=== PATIENT | female | born 2000 | race American Indian/Alaskan Native ===

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

== ENCOUNTER 2021-08-05 13:13 | Outpatient (CLI) | payer OTHER ==
[2021-08-05 13:32] VITALS: BP 133/78
--- NOTE | 2021-08-05 18:13 | Ultrasound Report ---
ULTRASOUND BIOPHYSICAL PROFILE ULTRASOUND OB LIMITED INDICATION: well being TECHNIQUE: Transabdominal ultrasound imaging. COMPARISON: None FINDINGS: breathing movement = 2 Gross body movement = 2 tone = 2 Qualitative amniotic fluid volume = 2 Total biophysical score = 8/8 Amniotic fluid index is 14.0 cm. Presentation is cephalic. heart rate is 138 beats per minute. IMPRESSION: biophysical profile equals 8/8. Signer Name: Jeff Mckee Jr, MD Signed: 08/05/2021 6:09 PM Workstation Name: [id number]
== END 2021-08-05 14:52 | disposition home or self-care (01) ==
LOC: TRG 13:13 → APU 13:15 → TRG 14:52
PROVIDERS: ATTEND Obstetrics & Gynecology
DX: Z34.93 Encounter for supervision of normal pregnancy, unspecified, third trimester (principal); Z3A.40 40 weeks gestation of pregnancy
CPT/HCPCS: 59025; 76815; 76819

== ENCOUNTER 2021-08-08 09:01 | Inpatient (IN) | payer OTHER ==
--- NOTE | 2021-08-08 10:37 | History and Physical Report ---
History of Present Illness Date of examination: 08/08/21 Date of admission: 08/08/21 09:01 Chief complaint: Here for scheduled induction of labor. History of present illness: 21 year old female here for scheduled induction of labor due to at 41 2/7 weeks gestation. Patient received care at [facility] office and records are available. LMP 10/23/20. EDC 07/30/21. significant for the following: obesity, anemia, size greater than dates, Vitamin D deficiency. labs are as follows: O+, antibody screen negative, rubella immune, varicella immune, pap smear negative, HIV negative, hepatitis B surface antigen negative, RPR nonreactive, gonorrhea negative, chlamydia negative, trichomonas negative, GBS negative, 1 hour sugar test 134. Past History Past Medical History: other (obesity) Past Surgical History: appendectomy [facility] History: denies: chlamydia, gonorrhea, hepatitis B, herpes, HIV, syphilis, trichomonas Family/Genetic History: none Social history: lives with family, full code. denies: smoking, alcohol abuse, prescription drug abuse, IV drug use - Obstetrical History Expected Date of Delivery: 07/30/21 Actual Gestation: 41 Week(s) 2 Day(s) : 1 Para: 0 Hx # Term Pregnancies: 0 Number of Pregnancies: 0 Spontaneous Abortions: 0 Induced : 0 Number of Living Children: 0 Medications and Allergies Allergies Allergy/AdvReac Type Severity Reaction Status Date / Time No Known Allergies Allergy Verified 11/02/17 11:38 Home Medications Medication Instructions Recorded Confirmed Last Taken Type Ferric Sulfate 1 tab PO DAILY 08/08/21 08/08/21 08/07/21 17:00 History Pnv,Calcium 72/Iron/Folic Acid 1 each PO DAILY 08/08/21 08/08/21 08/07/21 21:00 History [ Plus Tablet] Review of Systems All systems: negative (irregular mild contractions) - Vital Signs Vital signs: Vital Signs Pulse BP 111 H 120/60 08/08/21 09:38 08/08/21 09:38 Temp Pulse Resp BP Pulse Ox 98.6 F 111 H 20 120/60 97 08/08/21 10:08 08/08/21 10:31 08/08/21 10:08 08/08/21 09:38 08/08/21 10:31 - Physical Exam Abdomen: Positive: normal appearance, soft. Negative: distention, tenderness, guarding, rigidity Genitourinary (Female): Positive: normal external genitalia, normal perenium. Negative: perineal/vulvar lesions (no lesions seen on careful exam with bright light upon admission) Vagina: Positive: normal moisture Uterus: Positive: enlarged. Negative: tender Anus/Rectum: Positive: normal perianal skin Extremities: Positive: normal. Negative: tenderness - Obstetrical FHR: category 1 Uterine Contraction Monitor Mode: External Cervical Dilatation: 1 Cervical Effacement Percentage: 40 station: -4 Uterine Contraction Pattern: Irregular Uterine Contraction Intensity: Mild Results All other labs normal. Assessment and Plan A: at 41 weeks, 2 days gestation. GBS negative. Obesity. P: Admit. Continuous EFM. US to confirm presentation. Cervidil for cervical ripening, followed by Pitocin induction of labor.
[2021-08-08 10:51] LABS: Hemoglobin 12.1 gm/dl (10.1-14.3); Mean Corpuscular HGB Conc 33 % (30-34); Mean Corpuscular Volume 90 fl (79-97); Platelet Count 311 K/mm3 (140-440); Red Blood Count 4.13 M/mm3 (3.65-5.03); Red Cell Distribution Width 14.1 % (13.2-15.2)
[2021-08-08] MEDS ORDERED: OXYTOCIN DRIP 30 UNITS/500 ML BAG IV SCH ×3 (11:00→15:00)
[2021-08-08] MEDS: LACTATED RINGERS 1,000 ML IV SCH ×2 (11:10→15:24)
[2021-08-08] MEDS ORDERED: LIDOCAINE (2%) 20 MG/1 ML VIAL 20 ML MDV INFILTRATI SCH (12:00)
[2021-08-08] MEDS ORDERED: DINOPROSTONE 10 MG VAG SUPP VG SCH (12:00)
[2021-08-08] MEDS ORDERED: ONDANSETRON 4 MG/2 ML INJ IV PRN ×3 (12:00→17:33)
[2021-08-08] MEDS ORDERED: BUTORPHANOL 2 MG/1 ML INJ IV PRN (12:00)
[2021-08-08] MEDS ORDERED: ePHEDrine SULFATE 50 MG/1 ML INJ IV PRN (12:00)
[2021-08-08] MEDS ORDERED: TERBUTALINE 1 MG/1 ML INJ SUB-Q PRN (12:00)
[2021-08-08] MEDS ORDERED: CARBOPROST TROMETHAMINE 250 MCG/1 ML INJ IM PRN (12:00)
[2021-08-08] MEDS ORDERED: fentaNYL 100 MCG/2 ML INJ IV PRN (12:00)
[2021-08-08] MEDS ORDERED: OXYTOCIN 10 UNIT/1 ML INJ IM PRN (12:00)
[2021-08-08] MEDS ORDERED: METHYLERGONOVINE MALEATE 0.2 MG/ML VIAL IM PRN (12:00)
[2021-08-08] MEDS ORDERED: miSOPROStol 200 MCG TAB PR PRN ×2 (12:00→18:24)
[2021-08-08] MEDS ORDERED: MINERAL OIL 30 ML ORAL LIQD PO PRN (12:00)
[2021-08-08] MEDS ORDERED: ACETAMINOPHEN 325 MG TAB PO PRN (12:00)
[2021-08-08] MEDS ORDERED: LOPERAMIDE 2 MG CAP PO PRN (12:00)
--- NOTE | 2021-08-08 13:00 | Event Note ---
Date: 08/08/21 US shows cephalic presentation, EFW [address] Alegria re: EFW. Dr. Alegria states to offer patient a section due to suspected macrosomia. Discussed with patient in detail risks of macrosomia, including increased risks of prolonged labor, operative delivery, hemorrhage, lacerations of vulva and vagina, and shoulder dystocia. Discussed option of section due to suspected macrosomia versus induction of labor/attempting vaginal . Patient states she wants to have a section. US being done for BPP per Dr. Alegria's order. SVE 1.5/70/- 4. Irregular contractions. Informed patient to avoid eating and drinking. MD, anesthesia, and nurse notified of plan for section at 4:00 PM today.
[2021-08-08] MEDS ORDERED: BICITRA ORAL LIQD 30ML PO NR (14:25)
[2021-08-08] MEDS ORDERED: METOCLOPRAMIDE 10 MG/2 ML INJ IV NR (14:25)
[2021-08-08] MEDS ORDERED: FAMOTIDINE 20 MG/2 ML INJ IV NR (14:25)
[2021-08-08] MEDS ORDERED: LACTATED RINGERS 1,000 ML IV SCH (14:30)
[2021-08-08] MEDS ORDERED: PROMETHAZINE 25 MG TAB PO PRN (15:00)
[2021-08-08] MEDS ORDERED: NalbUPHINE 10 MG/1 ML INJ IV PRN (15:00)
[2021-08-08] MEDS ORDERED: PROMETHAZINE 25 MG RECT SUPP PR PRN ×2 (15:00→17:33)
[2021-08-08] MEDS ORDERED: NALOXONE 0.4 MG/1 ML INJ IV PRN ×2 (15:00→17:33)
[2021-08-08] MEDS ORDERED: diphenhydrAMINE 50 MG/ML VIAL IV PRN (15:00)
[2021-08-08] MEDS ORDERED: HYDROmorphone 1 MG/1 ML INJ IV PRN (15:00)
[2021-08-08] MEDS ORDERED: ceFAZolin/Water 2 GM/20 ML 2 GM/20 ML SYRINGE IV NR (15:00)
--- NOTE | 2021-08-08 15:49 | Event Note ---
Date: 08/08/21 Macrosomia Postdates NPO, to OR for elective delivery Informed consent obtained David Alegria MD
--- NOTE | 2021-08-08 16:10 | Procedure Note ---
OB Delivery Note - Delivery Date of Delivery: 08/08/21 Surgeon: PATRICA ERAZO - Section Preop diagnosis: other (macrosomia) Postop diagnosis: same section procedure: primary low transverse Disposition: PACU Complications: none Narrative: Preop diagnosis: IUP at 41.2 weeks, suspected macrosomia on admission US(patient declines RICK) Postop diagnosis: Same,delivered Procedure: Primary low transverse section via Pfannenstiel incision Surgeon: Dr. Patrica Erazo Anesthesia spinal Complications none EBL 453 ml IV fluids 1300 mL Urine output 100 mL, clear Drains Cruz to gravity Findings: Viable male with weight 4440gms and 7/9, normal uterus tubes and ovaries bilaterally Procedure: Patient was consented in 2009, taken to the operating room where she received excellent spinal anesthesia. She was then placed in the dorsal supine position with a leftward tilt. The abdomen was prepped and draped in a sterile fashion, and a timeout was verified. Adequate anesthesia was confirmed prior to the skin incision. A Pfannenstiel skin incision was made with a scalpel taken down to the underlying structures and the fascia was incised in the midline. The incision was extended laterally with curved Boggs scissors, the superior and inferior aspects of the fascial incisions were grasped with Cornel clamps and the rectus muscles dissected sharply. The abdomen was entered bluntly in the midline carried down inferiorly with good visualization of the bladder. The vesicouterine peritoneum was tented with Azerbaijani forceps and incised in the midline with Metzenbaum scissors and the vesicouterine peritoneum taken down sharply. The uterine incision was then made sharply with a scalpel. The inferior and superior aspect of the uterine incisions were extended bluntly, the baby's head was delivered atraumatically via vacuum assisted delivery and extension of the abdominal incision. Difficulty encountered second to size of vertex. The remainder of the delivery was uncomplicated, no nuchal cord. The cord was clamped and cut and baby handed to waiting NICU team. COrd gasses obtained, cord blood sent. An intact placenta with three-vessel cord delivered manually. The uterus was then cleared of all clots and debris and the uterus exteriorized. The uterine incision was closed in 2 layers of 0 vicryl with excellent hemostasis. The abdomen was then irrigated with warm normal saline and the uterus placed back into the abdomen atraumatically. A second look at the uterine incision assured hemostasis. The peritoneum was closed with 3-0 Vicryl, the rectus muscles approximated with 3-0 Vicryl, and the fascia closed with 0 Vicryl in the usual fashion. The subcuticular structures were closed with interrupted sutures of 3-0 Vicryl and the skin closed with 4-0 Monocryl. A pressure dressing was applied. All sponge needle and instrument counts were correct x2. There were no complications. Mom and baby stable to PACU. EBL 453 mL David Erazo MD
[2021-08-08] MEDS ORDERED: KETOROLAC 30 MG/1 ML INJ ONE (16:25)
[2021-08-08] MEDS ORDERED: BUPIVACAINE/PF (0.5%) 5 MG/1 ML 30 ML VIAL INFILTRATI ONE (16:25)
[2021-08-08] MEDS ORDERED: dexAMETHasone 20 MG/5 ML VIAL ONE (16:25)
[2021-08-08] MEDS ORDERED: ONDANSETRON 4 MG/2 ML INJ ONE (16:25)
[2021-08-08] MEDS ORDERED: ceFAZolin/STERILE WATER 2 GM/20 ML SYRINGE IV ONE (16:40)
--- NOTE | 2021-08-08 16:55 | Anesthesia Day of Surgery ---
Anesthesia Day of Surgery - Day of Surgery Patient Examined: Yes Patient H&P Reviewed: Yes Patient is NPO: Yes (0800) Beta Blockers: No Cardiac Clearance: No Pulmonary Clearance: No Aleksander's Test: N/A
--- NOTE | 2021-08-08 16:55 | Anesthesia Consultation ---
Anesthesia Consult and Med Hx Date of service: 08/08/21 - Airway Anesthetic Teeth Evaluation: Good ROM Head & Neck: Adequate Mental/Hyoid Distance: Adequate Mallampati Class: Class II Intubation Access Assessment: Probably Good - Pulmonary Exam CTA: Yes - Cardiac Exam Cardiac Exam: RRR - Pre-Operative Health Status ASA Pre-Surgery Classification: ASA2 Proposed Anesthetic Plan: Spinal Nerve Block: TAP - Pulmonary Hx Smoking: No Hx Asthma: No COPD: No Hx Pneumonia: No Hx Sleep Apnea: No - Cardiovascular System Hx Hypertension: No Hx Heart Attack/AMI: No Hx Angina: No - Central Nervous System Hx Seizures: No Hx Psychiatric Problems: No - Gastrointestinal Hx Gastroesophageal Reflux Disease: No - Endocrine Hx Renal Disease: No Hx End Stage Renal Disease: No Hx Liver Disease: No Hx Insulin Dependent Diabetes: No Hx Non-Insulin Dependent Diabetes: No Hx Hypothyroidism: No Hx Hyperthyroidism: No - Hematic Hx Anemia: Yes Hx Sickle Cell Disease: No - Other Systems Hx Alcohol Use: No
--- NOTE | 2021-08-08 16:56 | Progress Note ---
Spinal Anesthesia Block - Spinal Anesthesia Block Start Time: 16:17 Stop Time: 16:29 Performed by:: CHAPARRITA VARELA (Marisol CHAPMAN) Procedure: Spinal anesthesia block is being performed for [C/S]. H&P, labs have been reviewed. Patient's questions and concerns have been answered. Informed consent has been performed. Timeout has was performed. Patient in sitting position on side of bed. Sterile prep and drape was performed. 3 mL 1% lido harshal skin wheal at L [3]-L [4]. Needle introducer advanced. 25-gauge spinal needle advanced, [+] CSF [-] blood. [Marcaine 10mg and Precedex 5mcg] Spinal dose was given. All needles removed. Patient tolerated procedure well.
[2021-08-08] MEDS ORDERED: PHENYLEPHRINE/NS 1,000 MCG/10 ML SYRINGE (OR USE) IV ONE (17:07)
[2021-08-08] MEDS ORDERED: LACTATED RINGERS 1,000 ML ONE (17:07)
[2021-08-08] MEDS ORDERED: ACETAMINOPHEN 650 MG RECT SUPP PR PRN (17:33)
[2021-08-08] MEDS ORDERED: LANOLIN/ZINC/DIMETHICONE (LANSINOH) 7 GM TP PRN (17:33)
[2021-08-08] MEDS ORDERED: WITCH HAZEL/ GLYCERIN PAD TP PRN (17:33)
[2021-08-08] MEDS ORDERED: SIMETHICONE 80 MG CHEW TAB PO PRN (17:33)
[2021-08-08] MEDS ORDERED: KETOROLAC 30 MG/1 ML INJ IV PRN ×2 (17:33)
[2021-08-08] MEDS ORDERED: HYDROCORTISONE 25 MG RECTAL SUPP PR PRN (17:33)
[2021-08-08] MEDS ORDERED: MAGNESIUM HYDROXIDE (MOM) ORAL LIQD UDC PO PRN (17:33)
[2021-08-08] MEDS ORDERED: MORPHINE 2 MG/1 ML INJ IV PRN ×2 (17:33→18:13)
[2021-08-08] MEDS ORDERED: OXYTOCIN DRIP 30,000 MILLIUNITS/500 ML BAG IV ONE (18:23)
[2021-08-08 18:45] LABS: Cord Art Bld Carbxyhemoglobin 1.7; Cord Art Bld Methemoglobin 0.2 mmHg; Cord Arterial Blood HCO3 14.1; Cord Arterial Oxyhemoglobin 88.5
[2021-08-09 01:20] LABS: Hematocrit 36.9 % (30.3-42.9); Hemoglobin 11.8 gm/dl (10.1-14.3); Mean Corpuscular HGB Conc 32 % (30-34); Mean Corpuscular Volume 90 fl (79-97); Platelet Count 294 K/mm3 (140-440); Red Blood Count 4.09 M/mm3 (3.65-5.03)
[2021-08-09 02:08] LABS: Band Neutrophils # (Manual) 0.4 K/mm3; Total Cells Counted 100
[2021-08-09 02:09] LABS: Platelet Estimate Consistent w Auto; RBC Morphology Normal
[2021-08-09 02:13] LABS: Basophils % (Auto) 0.8 % (0.0-1.8); Eosinophils % (Auto) 1.1 % (0.0-4.3); Lymphocytes # (Auto) 2.2 K/mm3 (1.2-5.4); Lymphocytes % (Auto) 18.6 % (13.4-35.0); Monocytes % (Auto) 17.9 % (0.0-7.3)
[2021-08-09 02:14] LABS: Basophils # (Auto) 0.1 K/mm3 (0.0-0.1); Eosinophils # (Auto) 0.1 K/mm3 (0.0-0.4); Monocytes # (Auto) 2.2 K/mm3 (0.0-0.8)
[2021-08-09] MEDS: LACTATED RINGERS 1,000 ML IV SCH ×2 (05:03→05:04)
[2021-08-09] MEDS: IBUPROFEN 600 MG TAB PO PRN (10:10)
[2021-08-09] MEDS: HYDROcodone/ACETAMINOPHEN 5-325 MG TAB PO PRN ×3 (10:11→22:21)
--- NOTE | 2021-08-09 10:30 | Post Anesthesia Evaluation ---
- Post Anesthesia Evaluation Patient Participated: Yes Airway Patent: Yes Stable Respiratory Function: Yes Nausea/Vomiting: No Temp > 96.8F: Yes Pain Manageable: Yes Adequeate Hydration: Yes Anesthesia Complications: No Block Receding Appropriately: Yes Patient on Ventilator: No
--- NOTE | 2021-08-09 17:10 | Progress Note ---
Assessment and Plan POD#1 C/Section with endomyometritis, afebrile 1. Will give augmentin orally bid 2. Routine post op care and remove dressing tomorrow 3. Pt told to ambulate more in the room All questions encouraged and answered Subjective Date of service: 08/09/21 Principal diagnosis: POD#1 C/S Interval history: Pt states her pain is controlled with meds. pt is bottle feeding and voiding without difficulty. pt has passed flatus but has not ambulated much today. Vaginal bleeding less than a period. Objective - Constitutional Vitals: Vital Signs - 12hr 08/09/21 08/09/21 08/09/21 07:04 08:00 10:10 Temperature 98.3 F Pulse Rate 77 Respiratory 20 20 Rate Blood Pressure 110/64 O2 Sat by Pulse 96 Oximetry O2 Sat by Pulse 98 Oximetry [ Anterior Bilateral Throughout] 08/09/21 08/09/21 08/09/21 10:11 11:36 15:20 Temperature 98.1 F 97.6 F Pulse Rate 69 80 Respiratory 20 18 18 Rate Blood Pressure 109/69 119/68 O2 Sat by Pulse 98 100 Oximetry O2 Sat by Pulse Oximetry [ Anterior Bilateral Throughout] General appearance: Present: no acute distress - Respiratory Respiratory effort: normal - Breasts Breasts: deferred - Cardiovascular Rhythm: regular Extremities: No edema - Gastrointestinal General gastrointestinal: Present: soft, non-tender (obese with dressing C/D/I) - Genitourinary Female genitourinary: other (peripad with moderate lochia and fundus with tenderness) - Neurologic Neurologic: moves all extremities - Psychiatric Psychiatric: appropriate mood/affect - Labs CBC & Chem 7: 08/09/21 00:35 Labs: Abnormal lab results 08/09/21 Range/Units 00:35 WBC 20.2 H (4.5-11.0) K/mm3 [place] % (Auto) 17.9 H (0.0-7.3) % [place] # (Auto) 2.2 H (0.0-0.8) K/mm3 Seg Neuts % (Manual) 89.0 H (40.0-70.0) % Lymphocytes % (Manual) 6.0 L (13.4-35.0) % Seg Neutrophils # Man 18.0 H (1.8-7.7) K/mm3 Medications & Allergies - Medications Allergies/Adverse Reactions: Allergies No Known Allergies Allergy (Verified 11/02/17 11:38) Home Medications: Home Medications Medication Instructions Recorded Confirmed Last Taken Type Ferric Sulfate 1 tab PO DAILY 08/08/21 08/08/21 08/07/21 17:00 History Ibuprofen [Motrin] 600 mg PO Q8H PRN #60 tablet 08/08/21 Unknown Rx Pnv,Calcium 72/Iron/Folic Acid 1 each PO DAILY 08/08/21 08/08/21 08/07/21 21:00 History [ Plus Tablet] oxyCODONE /ACETAMINOPHEN [Percocet 1 tab PO Q6HR PRN #20 tablet 08/08/21 Unknown Rx 5/325] Active Medications: Generic Name Dose Route Start Last Admin Trade Name Freq PRN Reason Stop Dose Admin Acetaminophen 650 mg 08/08/21 12:00 Acetaminophen 325 Mg Tab PO Q4H PRN Pain, Mild (1-3) Acetaminophen 650 mg 08/08/21 17:33 Acetaminophen 650 Mg Rect Supp AL Q4H PRN Fever >100.5/NIXON Hydrocodone Bitart/Acetaminophen 1 each 08/08/21 17:33 08/09/21 15:32 Hydrocodone/Acetaminophen 5-325 Mg Tab PO 1 each Q6H PRN Administration Pain, Moderate (4-6) Butorphanol Tartrate 1 mg 08/08/21 12:00 Butorphanol 2 Mg/1 Ml Inj IV Q2H PRN Pain, Moderate(4-6) LABOR PAIN Carboprost Tromethamine 250 mcg 08/08/21 12:00 Carboprost Tromethamine 250 Mcg/1 Ml Inj IM ONCE PRN Uterine Bleeding Diphenhydramine HCl 12.5 mg 08/08/21 15:00 Diphenhydramine 50 Mg/Ml Vial IV Q2H PRN Itching Ephedrine Sulfate 10 mg 08/08/21 12:00 Ephedrine Sulfate 50 Mg/1 Ml Inj IV Q2M PRN Hypotension Fentanyl 100 mcg 08/08/21 12:00 Fentanyl 100 Mcg/2 Ml Inj IV Q2H PRN Pain,Severe (7-10) LABOR PAIN Hydrocortisone Acetate 25 mg 08/08/21 17:33 Hydrocortisone 25 Mg Rectal Supp AL BID PRN Hemorrhoids Hydromorphone HCl 0.5 mg 08/08/21 15:00 Hydromorphone 1 Mg/1 Ml Inj IV Q4H PRN breakthrough pain > 7/10 Oxytocin/Sodium Chloride 30 units in 500 mls @ 2 mls/hr 08/08/21 11:00 Pitocin/Ns 30 Unit/500ml IV TITR AMANDA Protocol Lactated Ringer's 1,000 mls @ 125 mls/hr 08/08/21 12:00 08/09/21 05:04 Lactated Ringers IV 999 mls/hr DIRECT AMANDA Administration Oxytocin/Sodium Chloride 30 units in 500 mls @ 40 mls/hr 08/08/21 11:00 Pitocin/Ns 30 Unit/500ml IV TITR AMANDA Protocol Oxytocin/Sodium Chloride 30 units in 500 mls @ 0 mls/hr 08/08/21 15:00 Pitocin/Ns 30 Unit/500ml IV TITR AMANDA Protocol As Directed Oxytocin/Sodium Chloride 30,000 milliunits in 500 mls @ 1 mls/hr 08/08/21 18:23 08/08/21 18:15 Pitocin/Ns 30 Unit/500ml IV 08/29/21 14:22 999 milliunits/min DIRECT ONE 999 mls/hr Administration Protocol 1 MILLIUNITS/MIN Ibuprofen 600 mg 08/08/21 17:33 08/09/21 10:10 Ibuprofen 600 Mg Tab PO 600 mg Q6H PRN Administration Pain, Mild (1-3) Ibuprofen 800 mg 08/08/21 17:33 Ibuprofen 800 Mg Tab PO Q6H PRN Pain, Moderate (4-6) Ketorolac Tromethamine 15 mg 08/08/21 17:33 Ketorolac 30 Mg/1 Ml Inj IV 08/13/21 17:32 Q6H PRN Pain, Mild (1-3) Ketorolac Tromethamine 30 mg 08/08/21 17:33 08/09/21 02:13 Ketorolac 30 Mg/1 Ml Inj IV 08/13/21 17:32 30 mg Q6H PRN Administration Pain, Moderate (4-6) Loperamide HCl 2 mg 08/08/21 12:00 Loperamide 2 Mg Cap PO ONCE PRN give with Hemabate Magnesium Hydroxide 30 ml 08/08/21 17:33 Magnesium Hydroxide (Mom) Oral Liqd Udc PO QHS PRN Constip Unrelieved By Ro Methylergonovine Maleate 0.2 mg 08/08/21 12:00 Methylergonovine Maleate 0.2 Mg/Ml Vial IM ONCE PRN Uterine Bleeding Mineral Oil 30 ml 08/08/21 12:00 Mineral Oil 30 Ml Oral Liqd PO QHS PRN Constipation Morphine Sulfate 2 mg 08/08/21 17:33 Morphine 2 Mg/1 Ml Inj IV Q4H PRN Pain, Moderate (4-6) Morphine Sulfate 4 mg 08/08/21 18:13 08/08/21 21:05 Morphine 2 Mg/1 Ml Inj IV 4 mg Q4H PRN Administration Pain , Severe (7-10) Multi-Ingredient Ointment 1 applic 08/08/21 17:33 Lanolin/Zinc/Dimethicone (Lansinoh) 7 Gm TP PRN PRN dryness/cracking Nalbuphine HCl 2.5 mg 08/08/21 15:00 Nalbuphine 10 Mg/1 Ml Inj IV Q2H PRN Itching Naloxone HCl 0.2 mg 08/08/21 15:00 Naloxone 0.4 Mg/1 Ml Inj IV Q2MIN PRN Res Rate </= 8 or 02 SAT < 92% Naloxone HCl 0.1 mg 08/08/21 17:33 Naloxone 0.4 Mg/1 Ml Inj IV Q2MIN PRN Res Rate </= 8 or 02 SAT < 92% Ondansetron HCl 4 mg 08/08/21 15:00 Ondansetron 4 Mg/2 Ml Inj IV Q8H PRN Nausea And Vomiting Ondansetron HCl 4 mg 08/08/21 17:33 Ondansetron 4 Mg/2 Ml Inj IV Q8H PRN Nausea And Vomiting Oxytocin 10 unit 08/08/21 12:00 Oxytocin 10 Unit/1 Ml Inj IM ONCE PRN Uterine Bleeding Promethazine HCl 25 mg 08/08/21 15:00 Promethazine 25 Mg Tab PO Q6H PRN Nausea And Vomiting Promethazine HCl 25 mg 08/08/21 15:00 Promethazine 25 Mg Rect Supp AL Q6H PRN Nausea And Vomiting Promethazine HCl 25 mg 08/08/21 17:33 Promethazine 25 Mg Rect Supp AL Q6H PRN N/V IF NPO AND NO IV ACCESS Simethicone 80 mg 08/08/21 17:33 Simethicone 80 Mg Chew Tab PO Q6H PRN Gas pain Sodium Chloride 10 ml 08/08/21 18:00 Sodium Chloride 0.9% 10 Ml Flush Syringe IV 09/08/21 23:59 PRN NR Terbutaline Sulfate 0.25 mg 08/08/21 12:00 Terbutaline 1 Mg/1 Ml Inj SUB-Q ONCE PRN Hyperstimulation/Hypertonicity Witch Mag/Glycerin 1 each 08/08/21 17:33 Witch Mag/ Glycerin Pad TP PRN PRN Hemorrhoids/cleansing/soothing
[2021-08-09] MEDS: AMOXICILLIN/K CLAV 875/125MG TAB PO SCH (19:44)
[2021-08-09] MEDS: IBUPROFEN 800 MG TAB PO PRN (19:44)
[2021-08-10] MEDS: AMOXICILLIN/K CLAV 875/125MG TAB PO SCH ×2 (05:47→21:46)
[2021-08-10] MEDS: IBUPROFEN 600 MG TAB PO PRN (05:48)
[2021-08-10 07:44] LABS: Basophils % (Auto) 0.3 % (0.0-1.8); Eosinophils % (Auto) 0.3 % (0.0-4.3); Hematocrit 32.2 % (30.3-42.9); Hemoglobin 10.5 gm/dl (10.1-14.3); Lymphocytes # (Auto) 3.4 K/mm3 (1.2-5.4); Lymphocytes % (Auto) 21.8 % (13.4-35.0); Mean Corpuscular HGB Conc 33 % (30-34); Mean Corpuscular Volume 91 fl (79-97); Monocytes # (Auto) 1.4 K/mm3 (0.0-0.8); Monocytes % (Auto) 9.2 % (0.0-7.3); Platelet Count 270 K/mm3 (140-440); Red Blood Count 3.54 M/mm3 (3.65-5.03); Red Cell Distribution Width 14.6 % (13.2-15.2)
--- NOTE | 2021-08-10 11:40 | Progress Note ---
Assessment and Plan A: /postop day 2 S/P primary LTCS. Anemia. P: Supplement with iron. Encouraged patient to ambulate. Anticipate discharge home later today or tomorrow AM. Subjective - Subjective Date of service: 08/10/21 Principal diagnosis: /postop day 2 S/P primary LTCS Patient reports: appetite normal, voiding normally, pain well controlled, flatus, ambulating normally, no dizzy ambulation, no nauseated Wink: doing well Objective - Vital Signs Latest vital signs: Vital Signs Temp Pulse Resp BP Pulse Ox Pulse Ox 08/10/21 08:21 98 08/10/21 07:23 97.8 F 91 H 18 109/65 98 08/10/21 05:48 18 08/10/21 00:13 98.2 F 85 20 107/61 100 08/09/21 22:21 16 08/09/21 20:56 100 08/09/21 19:44 20 08/09/21 15:20 97.6 F 80 18 119/68 100 08/09/21 11:36 98.1 F 69 18 109/69 98 Intake and Output 08/09/21 08/10/21 08/10/21 23:59 07:59 15:59 Intake Total 478 240 Balance 478 240 Intake: Oral 478 240 Other: Total, Intake Amount 118 240 # Voids Indwelling Catheter 3 Void 1 1 # Bowel Movements 1 - Exam Cardiovascular: Present: Regular rate Lungs: Present: Clear to auscultation Abdomen: Present: normal appearance, soft, normal bowel sounds. Absent: distention, tenderness, guarding, rigidity Uterus: Present: normal, firm, fundal height below umbilicus (FH at 1 FB below umbilicus). Absent: bogginess, tenderness Extremities: Present: edema (mild pedal edema bilaterally). Absent: tenderness Incision: Present: normal, dry, intact - Labs Labs: Abnormal lab results 08/10/21 Range/Units 07:13 WBC 15.4 H (4.5-11.0) K/mm3 RBC 3.54 L (3.65-5.03) M/mm3 [place] % (Auto) 9.2 H (0.0-7.3) % [place] # (Auto) 1.4 H (0.0-0.8) K/mm3 Seg Neutrophils # 10.5 H (1.8-7.7) K/mm3
[2021-08-10] MEDS ORDERED: FERROUS SULFATE 325 MG TAB PO SCH (12:00)
[2021-08-10] MEDS: HYDROcodone/ACETAMINOPHEN 5-325 MG TAB PO PRN (16:56)
[2021-08-10] MEDS: IBUPROFEN 800 MG TAB PO PRN (21:46)
[2021-08-11] MEDS: HYDROcodone/ACETAMINOPHEN 5-325 MG TAB PO PRN (03:57)
--- NOTE | 2021-08-11 07:41 | Progress Note ---
Assessment and Plan A: /postop day 3 S/P primary LTCS. Anemia. P: Discussed with patient /postop discharge instructions and warning signs. Care of incision and activity restrictions discussed with patient. Advised patient to continue taking her vitamins and iron supplements at home. Advised patient to continue taking Augmentin at home. (Rx Augmentin 875 mg, #10, 1 po BID called to [facility] [address] Advised patient to avoid intercourse, lifting, housework, stair climbing, driving, and tub baths (patient may take showers). Advised patient to follow up at [facility] office in 1 week. Patient voiced understanding of all instructions. Subjective - Subjective Date of service: 08/11/21 Principal diagnosis: /postop day 3 S/P primary LTCS Interval history: Patient requests discharge home today. Patient reports: appetite normal, voiding normally, pain well controlled, flatus, ambulating normally, no dizzy ambulation, no nauseated : doing well Objective - Vital Signs Latest vital signs: Vital Signs Temp Pulse Resp BP Pulse Ox Pulse Ox 08/11/21 03:57 20 08/10/21 21:46 20 08/10/21 19:25 100 08/10/21 16:56 20 08/10/21 16:07 98.4 F 85 16 112/71 98 08/10/21 08:21 98 Intake and Output 08/10/21 08/10/21 08/11/21 15:59 23:59 07:59 Intake Total 2400 Output Total 5 Balance 2395 Intake: Oral 900 Intake, Free Water 1500 Output: Urine 5 Void 5 Other: Total, Intake Amount 900 Total, Output Amount 5 # Voids Void 5 - Exam Abdomen: Present: normal appearance, soft, normal bowel sounds. Absent: distention, tenderness, guarding, rigidity Uterus: Present: normal, firm, fundal height below umbilicus. Absent: bogginess, tenderness Extremities: Present: edema. Absent: tenderness Incision: Present: normal, dry, intact - Labs Labs: Abnormal lab results 08/10/21 Range/Units 07:13 WBC 15.4 H (4.5-11.0) K/mm3 RBC 3.54 L (3.65-5.03) M/mm3 [place] % (Auto) 9.2 H (0.0-7.3) % [place] # (Auto) 1.4 H (0.0-0.8) K/mm3 Seg Neutrophils # 10.5 H (1.8-7.7) K/mm3
--- NOTE | 2021-08-11 07:45 | Discharge Summary ---
Providers - Providers Date of Admission: 08/08/21 09:01 Date of discharge: 08/11/21 Attending physician: PATRICA ERAZO MD Primary care physician: PATRICA ERAZO MD Hospitalization Reason for admission: induction of labor Delivery: Procedure: primary low transverse Incision: normal, dry, intact Other procedures: none Discharge diagnosis: IUP at term delivered baby: male Pertinent studies: Labs Hospital course: Stable hospital course Condition at discharge: Good Disposition: 01 HOME / SELF CARE / HOMELESS - Discharge Diagnoses (1) Term delivered Status: Acute (2) Anemia Status: Acute Plan - Discharge Medications Prescriptions: Ibuprofen [Motrin] 600 mg PO Q8H PRN #60 tablet PRN Reason: Pain oxyCODONE /ACETAMINOPHEN [Percocet 5/325] 1 tab PO Q6HR PRN #20 tablet PRN Reason: Pain oxyCODONE /ACETAMINOPHEN [Percocet 5/325] 1 tab PO Q4HR PRN 21 Days #30 tab PRN Reason: Pain , Severe (7-10) - Provider Discharge Summary Activity: routine, no sex for 6 weeks, no heavy lifting 4 weeks, no strenuous exercise Diet: routine Instructions: routine Additional instructions: Continue taking your vitamins and iron supplements at home. Take Augmentin 875 mg by oral route every 12 hours for 5 days (prescription has been called in to [facility] on ). Follow up at [facility] office in 1 week. Call your doctor immediately for: * Fever > 100.5 * Heavy vaginal bleeding ( >1 pad per hour) * Severe persistent headache * Shortness of breath * Reddened, hot, painful area to leg or breast * Drainage or odor from incision. * Keep incision clean and dry at all times and follow doctor's instructions regarding bathing/showering - Follow up plan Follow up: PATRICA ERAZO MD [Primary Care Provider] - 7 Days
--- NOTE | 2021-08-11 08:24 | Ultrasound Report ---
Limited OB Ultrasound HISTORY: presentation, EFW. TECHNIQUE: Grayscale and color imaging performed. COMPARISON: 08/05/2021 FINDINGS: Single viable intrauterine gestation is cephalic in presentation with NICANOR of 12 cm and hear t rate of 143 bpm. Overall EGA by ultrasound is 41 weeks and 5 days compared to 41 weeks and 2 days c linically. Estimated delivery date by ultrasound is 07/27/2021. Estimated weight is 4556 g. IMPRESSION: Single viable intrauterine gestation as above. Signer Name: Asad Pereira MD Signed: 08/08/2021 11:49 AM Workstation Name: [id number]
[2021-08-11 08:54] VITALS: BP 111/70
== END 2021-08-11 09:57 | disposition home or self-care (01) | DRG 788 ==
LOC: LD 09:01 → OB 20:49
PROVIDERS: ADMIT Obstetrics & Gynecology; ATTEND Obstetrics & Gynecology
PROC: 10D00Z1 Extraction of Products of Conception, Low, Open Approach (ICD-10-PCS; principal; 2021-08-08)
DX: O75.3 Other infection during labor (principal); D64.9 Anemia, unspecified; Z20.822 Contact with and (suspected) exposure to COVID-19; Z3A.41 41 weeks gestation of pregnancy; O99.214 Obesity complicating childbirth; E66.9 Obesity, unspecified; Z37.0 Single live birth; O90.81 Anemia of the puerperium
CPT/HCPCS: 36415; 76816; 82803; 85007; 85014; 85018; 85025; 85027; 86592; 86850; 86900; 86901; G0378; A6250; J0690; J1100; J1885; J2270; J2370; J2405; J2590; J2765; J3490; J7120; U0003